=== PATIENT | male | born 1985 | race Caucasian/White ===

== ENCOUNTER 2017-03-04 01:28 | Emergency (ER) | payer SELFPAY ==
[~2017-03-04] VITALS: Ht 190.5 cm; Wt 99.8 kg
[2017-03-04 01:28] VITALS: BP 146/106
[~2017-03-04 01:28] MED LIST: NKM
--- NOTE | 2017-03-04 01:51 | Emergency Room Report ---
History of Present Illness General Chief Complaint: Alcohol Intoxication Source: Patient Present Illness HPI Patient was brought in by paramedics for being found on the ground confused Patient here states that he feels much better is not quite sure exactly what happened He does admit to drinking alcohol heavily last night Denies any other medical complaints Denies any focal weakness Denies any chest pain or short of breath Allergies: Coded Allergies: No Known Allergies (Unverified , 03/04/17) Patient History Past Medical History: see triage record Pertinent Family History: none Reviewed Nursing Documentation: PMH: Agreed, PSxH: Agreed Nursing Documentation-PMH Past Medical History: No Stated History Review of Systems All Other Systems: negative except mentioned in HPI Physical Exam Vital Signs Date Time Temp Pulse Resp B/P (MAP) Pulse Ox O2 Delivery O2 Flow Rate FiO2 03/04/17 01:23 133 21 Sp02 EP Interpretation: reviewed, normal General Appearance: well appearing, no apparent distress Head: normocephalic, atraumatic Eyes: bilateral eye PERRL, bilateral eye EOMI ENT: hearing grossly normal, normal pharynx, TMs + canals normal, uvula midline Neck: full range of motion, supple, no meningismus, no bony tend Respiratory: lungs clear, normal breath sounds, no rhonchi, no respiratory distress, no retraction, no accessory muscle use Cardiovascular #1: normal peripheral pulses, regular rate, rhythm, no edema, no gallop, no JVD, no murmur Gastrointestinal: normal bowel sounds, non tender, soft, no mass, no organomegaly, non-distended, no guarding, no hernia, no pulsatile mass, no rebound Genitourinary: no CVA tenderness Musculoskeletal: normal inspection Neurologic: oriented x3, responsive, 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, motor strength/ tone normal, sensory intact Psychiatric: mood/affect normal Skin: normal color, no rash, warm/dry, palpation normal Lymphatic: normal inspection, no adenopathy Medical Decision Making Diagnostic Impression: Primary Impression: Alcohol abuse ER Course Upon arrival the patient was fully responsive and appropriate He was allowed to rest Patient did admit to drinking alcohol earlier Patient had a benign clinical evaluation and remained hemodynamically stable After further observation patient requested to be discharged home stated that he felt fine Patient did leave prior to signing discharge papers however was ambulating appropriately, Last Vital Signs Date Time Temp Pulse Resp B/P (MAP) Pulse Ox O2 Delivery O2 Flow Rate FiO2 03/04/17 01:23 133 21 Status: improved Disposition: HOME, SELF-CARE Condition: Improved Additional Instructions: Patient is provided with the discharge instructions notified to follow up with primary doctor in the next 2-3 days otherwise return to the er with any worsening symptoms. Please note that this report is being documented using [employer]AG[employer] technology. This can lead to erroneous entry secondary to incorrect interpretation by the dictating instrument. ALEXANDRA OCHOA D.O. Mar 04, 2017 01:51
[2017-03-04 02:18] VITALS: BP 136/94
[2017-03-04 03:25] VITALS: BP 130/72
[2017-03-04 03:30] VITALS: BP 130/72
== END 2017-03-04 03:30 | disposition home or self-care (01) ==
LOC: EDBD 01:28 → EMR 01:45
DX: F10.129 Alcohol abuse with intoxication, unspecified (principal)
CPT/HCPCS: 99283